=== PATIENT | female | born 1945 | race Caucasian/White ===

== ENCOUNTER 2018-08-30 13:04 | Emergency (ER) | payer MEDICARE ==
[2018-08-30 13:26] VITALS: BP 118/57
[2018-08-30] MEDS ORDERED: Tetan/Diph/Pertus SYR(Tdap)* 0.5 ML SYR(BOOSTRIX) use SYR IM ONE (13:38)
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
[2018-08-30] MEDS ORDERED: Amoxicillin/Clavulanate TAB* 875 MG PO ONE (14:35)
== END 2018-08-30 14:47 | disposition home or self-care (01) ==
LOC: UCCORT 13:04
DX: S60.512A Abrasion of left hand, initial encounter (principal); W50.3XXA Accidental bite by another person, initial encounter; Y93.9 Activity, unspecified; Y92.009 Unspecified place in unspecified non-institutional (private) residence as the place of occurrence of the external cause; E11.8 Type 2 diabetes mellitus with unspecified complications; Z79.4 Long term (current) use of insulin; Z79.84 Long term (current) use of oral hypoglycemic drugs
CPT/HCPCS: 90471; 90715; 99202; A9270-GY; G0463

== ENCOUNTER 2018-08-31 12:49 | Emergency (ER) | payer MEDICARE ==
[2018-08-31 13:06] VITALS: BP 104/54
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
== END 2018-08-31 13:18 | disposition home or self-care (01) ==
LOC: UCCORT 12:49
DX: Z51.89 Encounter for other specified aftercare (principal); S61.452D Open bite of left hand, subsequent encounter; Y04.1XXD Assault by human bite, subsequent encounter; E11.9 Type 2 diabetes mellitus without complications; Z79.4 Long term (current) use of insulin; I10 Essential (primary) hypertension; E78.5 Hyperlipidemia, unspecified
CPT/HCPCS: 99211; G0463

== ENCOUNTER 2018-10-27 15:14 | Emergency (ER) | payer MEDICARE ==
[2018-10-27 16:08] VITALS: BP 127/71
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
== END 2018-10-27 17:26 | disposition home or self-care (01) ==
LOC: UCCORT 15:14
DX: R10.30 Lower abdominal pain, unspecified (principal); T74.11XA Adult physical abuse, confirmed, initial encounter; R19.7 Diarrhea, unspecified; E11.9 Type 2 diabetes mellitus without complications; I10 Essential (primary) hypertension; E78.5 Hyperlipidemia, unspecified; F41.9 Anxiety disorder, unspecified
CPT/HCPCS: 81003; 87086; 99212; G0463

== ENCOUNTER 2019-03-30 08:12 | Emergency (ER) | payer MEDICARE ==
[2019-03-30 08:24] VITALS: BP 128/41
--- NOTE | 2019-03-30 09:24 | UC ---
Dizzy HPI HPI Summary: 73 year old female, IDDM, presents after low blood glucose this AM. Woke after phone call at 6am, patient states she was disoriented, dizzy, had difficulty moving, concentrating. Ate a pepermint peggy, felt better, checked glucose and was 60. Ate another, went up to 70, came to , now feeling normal. no facial drooping, able to concentrate, focus well currently. Patients BG levels typically 70-140 in AM, only checks in AM, but past 2 days have been 56, 49. Patient did not contact primary provider. She states has nereyda stressed lately with moving and not eating as much as normal. no illnesses. - History Of Current Complaint Chief Complaint: UCDizziness Stated Complaint: DIABETIC CONCERN Time Seen by Provider: 03/30/19 08:52 Hx Obtained From: Patient Hx Last Menstrual Period: n/a ?: No Onset/Duration: Sudden Onset, Lasting Hours Timing: Constant Severity Initially: Moderate Severity Currently: Moderate Pain Intensity: 0 Pain Scale Used: 0-10 Numeric Character: Lightheaded, Weak, Dizzy Alleviating Factor(s): Other - candy Associated Signs And Symptoms: Positive: Diaphoresis, Unsteady Gait, Visual Changes, Decreased Oral Intake, Change In Diet - decreased intake typically. Negative: Change In Medication, OTC Medications - Allergies/Home Medications Allergies/Adverse Reactions: Allergies Allergy/AdvReac Type Severity Reaction Status Date / Time hay fever Allergy Sneezing Uncoded 10/27/18 15:40 PMH/Surg Hx/FS Hx/Imm Hx Endocrine History: Diabetes - Surgical History Surgical History: Yes Surgery Procedure, Year, and Place: appendectomy. gallbladder removal. hysterectomy. kidney stone removed - Family History Known Family History: Positive: Hypertension, Diabetes, Non-Contributory - Social History Alcohol Use: None Substance Use Type: None Smoking Status (MU): Never Smoked Tobacco - Immunization History Most Recent Tetanus Shot: Unknown Review of Systems All Other Systems Reviewed And Are Negative: Yes Psychological: Positive: Anxious Is Patient Immunocompromised?: No Physical Exam Triage Information Reviewed: Yes Appearance: Well-Appearing, No Pain Distress, Well-Nourished Vital Signs: Initial Vital Signs Temp 98.7 F 03/30/19 08:17 Pulse 84 03/30/19 08:17 Resp 17 03/30/19 08:17 BP 128/41 03/30/19 08:17 Pulse Ox 97 03/30/19 08:17 Vital Signs Reviewed: Yes Eyes: Positive: Conjunctiva Clear, Other: - EMOI, PERRLA ENT: Positive: Hearing grossly normal Neck: Positive: Supple, Nontender. Negative: Nuchal Rigidity Respiratory: Positive: Chest non-tender, Lungs clear, Normal breath sounds, No respiratory distress, No accessory muscle use. Negative: Respiratory distress, Decreased breath sounds, Crackles, Rhonchi, Stridor, Wheezing, Expiration Cardiovascular: Positive: RRR, No Murmur Musculoskeletal Exam: Normal Musculoskeletal: Positive: Strength Intact, ROM Intact Neurological Exam: Normal Psychological Exam: Normal Dizzy Course/Dx - Course Course Of Treatment: Normal exam, BS 180, patient currentl asymptomatic. Dr. Juarez office called , spoke with NUrse Schwartz who will review BG levels with DR. Brown and call patient back with instructions as well as follow up with office appointment. - Differential Dx/Diagnosis Provider Diagnosis: Hypoglycemia Discharge - Sign-Out/Discharge Documenting (check all that apply): Patient Departure All imaging exams completed and their final reports reviewed: No Studies - Discharge Plan Condition: Fair Disposition: HOME Patient Education Materials: Hypoglycemia in a Person with Diabetes (ED), What to Do if Your Blood Sugar is Low (ED) Referrals: Mylene Brown MD [Primary Care Provider] - Additional Instructions: - Dr. Brown's office notified, will call you with instructions on how to titrate insulin dosage - Continue to monitor glucose levels today - Eat healthy, frequent meals/ snacks to prevent low glucose levels. - Billing Disposition and Condition Condition: FAIR Disposition: Home
== END 2019-03-30 09:20 | disposition home or self-care (01) ==
LOC: UCCORT 08:12
DX: E11.649 Type 2 diabetes mellitus with hypoglycemia without coma (principal)
CPT/HCPCS: 99211; G0463